=== PATIENT | female | born 1955 | race Caucasian/White ===

== ENCOUNTER 2016-11-04 23:10 | Emergency (ER) | payer BC ==
--- NOTE | 2016-11-04 23:39 | EDM.PDOC ---
"ED HPI GENERAL MEDICAL PROBLEM - General Chief Complaint: Neurological Problem Stated Complaint: DIZZY Time Seen by Provider: 11/04/16 23:28 Source of Information: Reports: Patient History Limitations: Reports: No Limitations - History of Present Illness INITIAL COMMENTS - FREE TEXT/NARRATIVE: 61-year-old female presents to the ED due to sudden onset of vertigo this evening when she went to bed. She expressed vertigo when she got up from the lying down position and tried to walk she found she was staggering and off balance. The room was spinning. No associated nausea or vomiting. She went back to bed and when she got up to the bathroom similar symptoms occurred and she required help of a friend to walk to the bathroom. When she lies still she has no symptoms. Has a history of banging her head about 6 months ago left parietal scalp but she did not have any some vertigo symptoms at that time. She's had no previous vertigo attacks. No signs or symptoms of upper respiratory tract infection or sinus congestion in the last month. Recent changes to medication are levothyroxine last from 88 g to 100 g daily. Onset: Today Onset Date: 11/04/16 Onset Time: 21:40 Duration: Minutes: Location: Reports: Generalized (off balance feeling with difficulty walking androom spinning.) Quality: Reports: Other Severity: Moderate (vertigo) Improves with: Reports: Rest (not moving.) Worsens with: Reports: Movement (particularly getting up from lying down position.) Context: Denies: Activity, Exercise, Lifting, Sick Contact, Trauma Associated Symptoms: Denies: Confusion, Chest Pain, Cough, cough w sputum, Diaphoresis, Fever/Chills, Headaches, Loss of Appetite, Malaise, Nausea/Vomiting , Rash, Seizure, Shortness of Breath, Syncope, Weakness Treatments [employer]: Reports: Other (see below) (none.) - Related Data Allergies Allergy/AdvReac Type Severity Reaction Status Date / Time No Known Allergies Allergy Verified 11/04/16 23:25 Home Meds: Home Meds Levothyroxine [Synthroid] 88 mcg PO DAILY 11/04/16 [History] Simvastatin [Zocor] 20 mg PO DAILY 11/04/16 [History] Past Medical History Cardiovascular History: Reports: High Cholesterol Neurological History: Reports: Other (See Below) (restless leg syndrome. Takes methocarbamol when necessary nighttime to help with leg cramps and restlessness. ) Endocrine/Metabolic History: Reports: Hypothyroidism (Alan's thyroiditis. Currently hypothyroid in getting her dose of levothyroxine stabilized.) Social & Family History - Living Situation & Occupation Living situation: Reports: ED ROS GENERAL - Review of Systems Review Of Systems: See Below Constitutional: Denies: Fever, Chills, Malaise, Weakness, Fatigue, Decreased Appetite, Weight Loss HEENT: Reports: Glasses, Vertigo. Denies: Ear Discharge, Ear Pain Respiratory: Reports: No Symptoms (see history of present illness) Cardiovascular: Reports: No Symptoms Endocrine: Reports: No Symptoms GI/Abdominal: Reports: No Symptoms : Reports: No Symptoms Musculoskeletal: Reports: No Symptoms Skin: Reports: No Symptoms Neurological: Reports: No Symptoms Psychiatric: Reports: No Symptoms Hematologic/Lymphatic: Reports: No Symptoms ED EXAM, DIZZINESS - Physical Exam Exam: See Below Exam Limited By: No Limitations General Appearance: Alert, Anxious, Mild Distress, Other (is concerned that she may have had a stroke.) Eye Exam: Bilateral Eye: Normal Inspection, Nystagmus (mild on right lateral days.), PERRL Nystagmus: worsens with head to R, reproducible, short duration Ears: Normal External Exam, Normal Canal, Hearing Grossly Normal, Normal TMs Throat/Mouth: Normal Inspection, Normal Lips, Normal Teeth, Normal Oropharynx Head Exam: Atraumatic, Normocephalic Neck: Normal Inspection, Supple, Non-Tender, Full Range of Motion. No: Lymphadenopathy (L), Lymphadenopathy (R) Respiratory/Chest: No Respiratory Distress, Lungs Clear, Normal Breath Sounds, No Accessory Muscle Use Cardiovascular: Normal Peripheral Pulses, Regular Rate, Rhythm, No Edema, No Gallop, No Murmur GI/Abdominal: Normal Bowel Sounds, Soft, Non-Tender Neurological: Alert, Normal Mood/Affect, Normal Dorsiflexion, CN II-XII Intact, Normal Reflexes, No Motor/Sensory Deficits, Oriented x 3, Other (normal rapid alternating movements normal finger to nose no pronator drift normal heel to flood.). No: Abnormal Finger to Nose, Babinski Extremities: Normal Inspection, Normal Range of Motion, Non-Tender, No Pedal Edema, Normal Capillary Refill Psychiatric: Normal Affect, Normal Mood Skin Exam: Warm, Dry, Intact, Normal Color, No Rash Course - Vital Signs Last Recorded V/S: Last Vital Signs Temp 36.6 C 11/04/16 23:20 Pulse 76 11/04/16 23:20 Resp 16 11/04/16 23:20 BP 154/68 H 11/04/16 23:20 Pulse Ox 95 11/04/16 23:20 - Orders/Labs/Meds Meds: Medications Discontinued Medications Generic Name Dose Route Start Last Admin Trade Name Tanya PRN Reason Stop Dose Admin Meclizine HCl 25 mg 11/04/16 23:42 Antivert PO 11/04/16 23:43 ONETIME ONE - Radiology Interpretation Free Text/Narrative:: 61-year-old female presents to the ED with sudden onset of the vertigo. She symptoms around 2140 hrs. when she went to bed she noted that lying down and sitting up caused her precipitated disease episode where the room was spinning and offkilter. When she got up to void a short time ago she was very off balance and staggering gait. No associated nausea. She appreciates that if she holds still her vertigo goes away. No recent head trauma. No recent sinus infection or upper respiratory tract infection or allergy problems. Exam reveals no abnormalities in the ears. No exam is completely normal. Assessment benign positional vertigo. Patient will be treated with Antivert 25 mg every 8 hours for the next 5 days. Her happens to be a physiotherapist and he could perform|treatment at home if symptoms persist. Departure - Departure Time of Disposition: 23:43 Disposition: Home, Self-Care 01 Condition: Fair Clinical Impression: Benign paroxysmal positional vertigo - Discharge Information Referrals: PCP,Not In Area [Primary Care Provider] - Forms: ED Department Discharge Additional Instructions: evaluation the emergency room tonight in regards to sudden onset of development of vertigo which is and offkilter feeling off balance feeling and a sense of rotation or spinning. It is due to a problem within the balance mechanism in the middle ear cavity. The causes are usually multifactorial and have to do more with a mechanical problem within the labyrinth itself. It appears at the left one is the dysfunctional one at this time. Her neuro exam is otherwise completely normal. Blood pressure is mildly elevated on the top #160 at the bottom number is normal at 75. This is not high enough to cause vertigo. As you identified if you hold still you have no symptoms. It occurs mostly when getting up and out of bed i.e. the change in position. Similarly if you turn her head rapidly to the right side you are likely to experience vertigo symptoms. Treatment is time to get better 85% of people are better within 5 days if we did nothing. Antivert 12.5 mg tablets can be bought [id number] and you would take 2 every 8 hours for 5 days if the symptoms persist. You're given initial dose in the emergency room tonight. Education stabilizes the balance mechanism but is not fixed the problem time fixed the problem. As you discussed identified your is a physical therapist and he could perform a new versus to try and correct the problem if symptoms persist. There is no evidence of any stroke or neurological problems."
[2016-11-04] MEDS ORDERED: Meclizine 12.5 MG Tab PO ONE (23:42)
[2016-11-04 23:47] VITALS: BP 154/68
== END 2016-11-05 00:05 | disposition home or self-care (01) ==
LOC: JD.ED 23:10
DX: H81.10 Benign paroxysmal vertigo, unspecified ear (principal); Z79.899 Other long term (current) drug therapy; E78.00 Pure hypercholesterolemia, unspecified
CPT/HCPCS: 99284; A9270